=== PATIENT | female | born 1945 | race Caucasian/White ===

== ENCOUNTER 2022-11-08 06:52 | Emergency (ER) | payer MEDICARE, MEDICAID ==
[~2022-11-08] VITALS: Ht 160 cm; Wt 54.5 kg
[~2022-11-08 06:52] MED LIST: ALBU8HFA IH; HYDR-3965 PO
[2022-11-08] MEDS ORDERED: morphine 4 MG/ML inj SYRINge IV ONE (07:20)
[2022-11-08] MEDS ORDERED: methylPREDNISolone sod succ 125mg/2ml vial IV ONE (07:20)
[2022-11-08] MEDS ORDERED: ondansetron/PF 4mg/2ml inj IV ONE (07:20)
[2022-11-08] MEDS ORDERED: ipratropium/albuterol 3ml nebule NEB ONE (07:20)
--- NOTE | 2022-11-08 08:39 | NUR ---
PT INCONTINENT, TOTAL LINEN CHANGE PT PLACED ON CHUX WITH PURE WICK AND BRIEF IN PLACE
[2022-11-08 09:31] LABS: BASOPHILS % (AUTO) 0.1 % (0-1); EOSINOPHILS % (AUTO) 0 % (0-6); HEMATOCRIT 39.2 % (35.0-45.0); HEMOGLOBIN 12.4 g/dl (12.0-16.0); LYMPHOCYTES # (AUTO) 0.5 X10'3 (1.1-4.8); LYMPHOCYTES % (AUTO) 3.8 % (21-51); MEAN CORPUSCULAR HEMOGLOBIN 27.8 PG (27.0-31.0); MEAN CORPUSCULAR HGB CONC 31.6 g/dL (33.0-36.5); MONOCYTES # (AUTO) 0.8 X10'3 (0-0.9); MONOCYTES % (AUTO) 6.4 % (2-12); NEUTROPHILS # (AUTO) 10.9 X10'3 (1.8-7.7); NEUTROPHILS % (AUTO) 89.7 % (42-75); PLATELET COUNT 563 X10'3 (140-440); RED BLOOD COUNT 4.46 X10'6 (4.20-5.60); RED CELL DISTRIBUTION WIDTH 14.2 % (11.5-14.5); WHITE BLOOD COUNT 12.1 X10'3 (4.5-11.0)
[2022-11-08 09:41] LABS: ALANINE AMINOTRANSFERASE 12 U/L (12-78); ALBUMIN 2.4 G/DL (3.4-5.0); ALBUMIN/GLOBULIN RATIO 0.6 (1.1-1.5); ALKALINE PHOSPHATASE 69 IU/L (46-116); ANION GAP 9 (8-16); ASPARTATE AMINO TRANSFERASE 15 U/L (10-37); BILIRUBIN,TOTAL 0.3 MG/DL (0.1-1.0); BLOOD UREA NITROGEN 16 MG/DL (7-18); BUN/CREATININE RATIO 27.6 (10.0-20.0); CALCIUM 9.5 MG/DL (8.5-10.1); CHLORIDE 98 MMOL/L (99-107); CREATININE 0.58 MG/DL (0.40-0.90); GLUCOSE 100 MG/DL (70-104); POTASSIUM 3.8 MMOL/L (3.5-5.1); SODIUM 136 MMOL/L (135-145); TOTAL CARBON DIOXIDE 29.2 MMOL/L (24-32); TOTAL PROTEIN 6.1 G/DL (6.4-8.2); eGFR > 90 ML/MIN
--- NOTE | 2022-11-08 09:52 | NUR ---
DR PAULSON AT BEDSIDE TO DISCUSS PLAN OF CARE WITH PT SHE IS DNR AND STARTING HOSPICE CARE ON THURSDAY
[2022-11-08] MEDS ORDERED: LORA-269 PO (09:56)
[2022-11-08 10:43] VITALS: BP 109/87
== END 2022-11-08 20:16 | disposition home or self-care (01) ==
LOC: ER 06:54
DX: R06.00 Dyspnea, unspecified (principal); Z79.899 Other long term (current) drug therapy
CPT/HCPCS: 36415; 71045; 80053; 83880; 84484; 85025; 93005; 94640; 99285; J2270; J2405; J2930; 94760